=== PATIENT | male | born 1980 | race Caucasian/White ===

== ENCOUNTER 2020-11-11 11:29 | Emergency (ER) | payer BC, SELFPAY ==
[2020-11-11 11:36] VITALS: BP 149/78; PULSE 79; RESP 18; TEMP 36.4; O2SAT 100
--- NOTE | 2020-11-11 11:46 | ED.WOUNDLAC ---
HPI - Wound/Laceration General Chief Complaint: Wound/Laceration Stated Complaint: cut hand on table saw Time Seen by Provider: 11/11/20 11:41 Source: patient Mode of arrival: ambulatory Limitations: no limitations History of Present Illness HPI narrative: A 40-year-old male comes into the emergency department with complaints of a laceration to his left thumb. Patient states that he was using a table saw and after cutting a piece of wood he turned this off turned around to grab something else and came back, noting that the blade was still spinning. Patient was wearing work gloves which got caught on a spinning blade and cut his thumb. He states that it was bleeding heavily and this was his cause for concern and reason he came in. Related Data Home Medications Medication Instructions Recorded Confirmed No Home Medications 11/11/20 11/11/20 Allergies Allergy/AdvReac Type Severity Reaction Status Date / Time No Known Allergies Allergy Verified 11/11/20 11:40 Review of Systems Review of Systems: Narrative: CONSTITUTIONAL: Denies fever, chills, or sweats. EYES: Denies visual changes, redness, or discharge. ENT: Denies rhinorrhea, congestion, sore throat, or otalgia. CARDIOVASCULAR: Denies chest pain, palpitations, or edema. RESPIRATORY: Denies cough or dyspnea. GASTROINTESTINAL: Denies abdominal pain, nausea, vomiting, or diarrhea. GENITOURINARY: Denies dysuria or hematuria. SKIN: Denies rash or itching. MUSCULOSKELETAL: Denies back pain, joint pain, or myalgia. Left thumb laceration NEUROLOGIC: Denies headache, numbness, dizziness, or weakness. PSYCHIATRIC: Denies anxiety or depression. [facility] Family History Family History Father Family history of diabetes mellitus in first degree relative Social History Social History Smoking status: Never smoker Alcohol intake: current Gender identity (if verbalized by the patient): Male Exam Narrative: Exam Narrative: GENERAL: Well-appearing, well-nourished, and in no acute distress. HEAD: Normocephalic, atraumatic. EYES: PERRLA and EOMI. ENT: Nares clear, no rhinorrhea or epistaxis. Mucous membranes moist. NECK: Supple. No adenopathy or masses. No carotid bruits or JVD CHEST: Clear to auscultation. No respiratory distress. No wheezes rales or rhonchi HEART: Regular rate and rhythm. No murmur heard. Normal peripheral pulses. ABDOMEN: Soft, nontender, nondistended, normal active bowel sounds. EXTREMITIES: Normal range of motion. No edema. 3 cm laceration on the medial aspect of the left thumb, laxity noted with lateral stress. 2.5 cm laceration noted on the lateral aspect of the PIP on the index finger of the left hand SKIN: Warm, dry, no rash. NEURO: No focal deficits. Alert and oriented x3. PSYCH: Normal mood and affect. Course Vital Signs Vital signs: Vital Signs Temperature 36.4 C L 11/11/20 11:36 Pulse Rate 79 11/11/20 11:36 Respiratory Rate 18 11/11/20 11:36 Blood Pressure 149/78 H 11/11/20 11:36 Pulse Oximetry 100 11/11/20 11:36 Temperature 36.4 C L 11/11/20 11:36 Pulse Rate 79 11/11/20 11:36 Respiratory Rate 18 11/11/20 11:36 Blood Pressure 149/78 H 11/11/20 11:36 Pulse Oximetry 100 11/11/20 11:36 Procedures Laceration Laceration 1: Site: hand Side (If applicable): left Size (cm): 3 Description: linear Depth: simple, single layer Local Anesthetic: lidocaine 1% Amount of anesthesia used (mL): 5 Pre-repair: wound explored and irrigated ====== Skin Level ====== Skin layer closed with: prolene Size (cm): 5-0 Number of sutures: 6 Technique: simple, interrupted ====== Subcutaneous Layer ====== ====== Muscle Layer ====== ====== Tendon Layer ====== Laceration 2: Site: hand Side (If applicable):
[2020-11-11] MEDS: TETANUS,DIPHTHERIA,AC PERTUSSIS ADULT (0.5 ML) BOOSTRIX IM (11:56)
--- NOTE | 2020-11-11 12:39 | PC.NURSE ---
dressing and finger frog splint applied to left thumb. coban applied over splint. good pms before and after splint application. instructions on wound and splint care provided
[2020-11-11 12:51] VITALS: BP 122/68; PULSE 68; RESP 18; O2SAT 99
== END 2020-11-11 12:52 | disposition home or self-care (01) ==
PROVIDERS: Emergency Provider Emergency Medicine; PCP Internal Medicine
DX: S61.012A Laceration without foreign body of left thumb without damage to nail, initial encounter (principal); S61.211A Laceration without foreign body of left index finger without damage to nail, initial encounter; Z23 Encounter for immunization; W31.2XXA Contact with powered woodworking and forming machines, initial encounter
CPT/HCPCS: 12002; 90471; 90715; 99282

== ENCOUNTER 2024-09-02 00:22 | Day surgery (SDC) | payer BC, SELFPAY ==
[2024-08-24 14:03] VITALS: BMI 25.6
[2024-09-02 08:15] VITALS: BP 151/97; PULSE 76; RESP 16; TEMP 36.3; O2SAT 99
[2024-09-02] MEDS: LACTATED RINGERS 1,000 ML 150 ML IV CONT (08:23)
--- NOTE | 2024-09-02 08:28 | P.PNAN_ITS ---
Anes - Initial Pre Proc Eval Procedure: Operation Date: 09/02/24 09:30 Proposed Procedures p Screening Colonoscopy - Gwyn Aparicio MD Date/Time: 09/02/24 08:28 Surgeon: Gwyn Aparicio MD Pre Op Diagnosis: neoplasm screening Patient Data Age: 44 Gender: M Height: 1.85 m Weight: 83.2 kg Last Vital Signs Temp 36.3 C L 09/02/24 08:15 Pulse 76 09/02/24 08:15 Resp 16 09/02/24 08:15 BP 151/97 H 09/02/24 08:15 Pulse Ox 99 09/02/24 08:15 O2 Del Method Room Air 09/02/24 08:15 Allergies Allergy/AdvReac Type Severity Reaction Status Date / Time No Known Allergies Allergy Verified 09/02/24 08:13 Home Medications ?Medication ?Instructions ?Recorded ?Confirmed ?Type No Home Medications 11/11/20 08/24/24 History Patient hx anesthesia problems: none Family hx anesthesia problems: none Results Review: All pre-operative results and documents have been reviewed as part of the pre-operative evaluation. [facility] Past Medical History Medical History (Updated 09/02/24 @ 08:28 by Tevin Colin MD) HTN (hypertension) Family History Family History Father Family history of diabetes mellitus in first degree relative Social History Social History Smoking status: Never smoker Alcohol intake: current Drinks per week: 7 Substance use type: does not use Living arrangements: with family Gender identity (if verbalized by the patient): Male Spiritual care concerns: No Anes - Eval Final PreProcedure Day of Procedure 09/02/24 08:28 Patient weight: normal Heart: regular rate and rhythm Lungs: clear to auscultation Airway: Mallampati scale class II Neurological: alert and oriented Last oral intake: >/= 8 hours ASA classification: II Emergent: no Anesthetic plan: proceed Anesthesia type and monitoring: general GIVS and standard monitoring Results Review: All pre-operative results and documents have been reviewed as part of the pre- operative evaluation. Informed Consent: The patient's anesthetic plan and its attendant risks and benefits were discussed with the patient/family/POA. Questions were solicited and answers provided to the satisfaction of the patient/family/POA.
--- NOTE | 2024-09-02 08:46 | PM.HPGS ---
History of Present Illness History of Present Illness Consent: Risks, benefits, and alternatives have been discussed and questions answered. Patient agrees to proceed with procedure. Chief complaint: neoplasm screening Narrative: Papito Silva is a 44 year old male here for first screening colonoscopy Review of Systems Review of Systems: All systems reviewed & are unremarkable except as noted in HPI and below PMFSH Past Medical History Medical History (Updated 09/02/24 @ 08:48 by Gwyn Aparicio MD) Colon cancer screening HTN (hypertension) Family History Family History Father Family history of diabetes mellitus in first degree relative Social History Social History Smoking status: Never smoker Alcohol intake: current Drinks per week: 7 Substance use type: does not use Living arrangements: with family Gender identity (if verbalized by the patient): Male Spiritual care concerns: No Meds Home Medications and Allergies Home Medications ?Medication ?Instructions ?Recorded ?Confirmed ?Type No Home Medications 11/11/20 08/24/24 History Allergies Allergy/AdvReac Type Severity Reaction Status Date / Time No Known Allergies Allergy Verified 09/02/24 08:13 Vital Signs Vital Signs - 24 hr 09/02/24 08:15 Temperature 97.3 F L Pulse Rate 76 Respiratory Rate 16 Blood Pressure 151/97 H Pulse Oximetry 99 Oxygen Delivery Room Air Exam Const: General: comfortable and no acute distress HENMT: Face/Nose/Sinus: Normal nares present Eyes: General: appearance normal, both eyes and all related structures Neck: Neck: no JVD Resp: Auscultation: clear to auscultation bilaterally Cardio: Rate: regular rate Rhythm: regular rhythm GI: Inspection: non-distended GI Palp: Yes Soft to palpation Skin: General skin exam: normal color Neuro: General: gait normal Speech: normal speech Extrem: General: normal to inspection Psych: Mental Status: mental status grossly normal Assessment and Plan Assessment and plan (1) Colon cancer screening: Code(s): Z12.11 - Encounter for screening for malignant neoplasm of colon Status: Acute Assessment and Plan: colonoscopy
[2024-09-02 09:00] VITALS: BP 130/91; PULSE 58; RESP 20; O2SAT 99
[2024-09-02 09:10] VITALS: BP 138/94; PULSE 66; RESP 22; O2SAT 100
[2024-09-02 09:20] VITALS: BP 138/91; PULSE 66; RESP 24; O2SAT 100
== END 2024-09-02 10:20 | disposition home or self-care (01) ==
PROVIDERS: PCP Internal Medicine; Visit Provider Internal Medicine Gastroenterology
PROC: 0DJD8ZZ Inspection of Lower Intestinal Tract, Via Natural or Artificial Opening Endoscopic (ICD-10-PCS; CPT 45378; principal; 2024-09-02 09:30)
DX: Z12.11 Encounter for screening for malignant neoplasm of colon (principal); K64.8 Other hemorrhoids; I10 Essential (primary) hypertension
CPT/HCPCS: 45378; J2704; J7120